=== PATIENT | male | born 1965 | race Caucasian/White ===

== ENCOUNTER 2018-12-30 09:56 | Day surgery (SDC) | payer OTHER ==
[2018-12-30] MEDS ORDERED: FENTAnyl 50 MCG/ML VIAL (12:38)
[2018-12-30] MEDS ORDERED: MIDAZOLAM 1 MG/ML 2 ML INJ ×2 (12:39)
== END 2018-12-30 16:42 | disposition home or self-care (01) ==
LOC: GIL 09:56
DX: Z12.11 Encounter for screening for malignant neoplasm of colon (principal); D12.3 Benign neoplasm of transverse colon; K64.8 Other hemorrhoids
CPT/HCPCS: 45380; 88305